=== PATIENT | male | born 1945 | race Caucasian/White ===

== ENCOUNTER 2022-03-07 07:21 | Emergency (ER) | payer MEDICARE, OTHER, SELFPAY ==
[2022-03-07] VITALS (8 sets, daily range): BP systolic 195–238; BP diastolic 97–102; PULSE 76–101; RESP 20; TEMP 36.3; O2SAT 96–98; BMI 25.0
--- NOTE | 2022-03-07 07:51 | ED.GENADULT ---
HPI - General Adult General Chief complaint: High Blood Pressure <Sabrina Leon MD - Last Filed: 03/07/22 07:58> Stated complaint: High Blood Pressure <Sabrina Leon MD - Last Filed: 03/07/22 07:58> Time Seen by Provider: 03/07/22 07:50 <Sabrina Leon MD - Last Filed: 03/07/22 07:58> Source: patient <Sabrina Leon MD - Last Filed: 03/07/22 07:58> Mode of arrival: ambulatory <Sabrina Leon MD - Last Filed: 03/07/22 07:58> Limitations: no limitations <Sabrina Leon MD - Last Filed: 03/07/22 07:58> History of Present Illness HPI narrative: Patient is a 77-year-old male coming in today concerned about high blood pressure. Patient has been trying to quit smoking and has been taking his niece's Wellbutrin for the last 6 days. He randomly decided to check his blood pressure yesterday and found that it was 150 systolic. This concerned him very much especially this morning when he rechecked it and it was 180 systolic. Patient tells me that he does have a history of high blood pressure but stopped taking his medication several years ago. Has not checked his blood pressures in many years so he does not know what an average for him is. He feels fine, denies chest pain, shortness of breath, headache, blurry vision, urinary symptoms or abdominal discomfort. Patient has a history of history of tobacco use and hyperlipidemia. He takes simvastatin daily. He is from [place] and does not have a primary care provider in [place] yet. <Sabrina Leon MD - Last Filed: 03/07/22 07:58> Related Data Home medications: Home Medications Medication Instructions Recorded Confirmed simvastatin 40 mg tablet 40 mg PO DAILY 03/07/22 03/07/22 Previous Rx's Medication Instructions Recorded metoprolol succinate 25 mg 25 mg PO DAILY #14 tabs 03/07/22 tablet,extended release 24 hr <Sabrina Leon MD - Last Filed: 03/07/22 07:58> Allergies/adverse reactions: Allergies Allergy/AdvReac Type Severity Reaction Status Date / Time No Known Drug Allergies Allergy Verified 03/07/22 07:37 <Sabrina Leon MD - Last Filed: 03/07/22 07:58> Review of Systems Status of ROS: Reports: 10 or more systems reviewed and unremarkable except as noted in History and below <Sabrina Leon MD - Last Filed: 03/07/22 07:58> [facility] Social History: Social History Smoking Status: Former smoker Do you use any of these nicotine containing products: None Second hand tobacco smoke exposure: No How often do you have a drink containing alcohol: never AUDIT-C Alcohol total score: 0 Non-prescribed substance use: denies use service: Yes <Sabrina Leon MD - Last Filed: 03/07/22 07:58> Exam Narrative: Exam Narrative: Well-nourished well-developed patient in no acute distress. Alert and oriented. Answers questions appropriately. Mood and affect are appropriate. Thoughts are goal oriented and rational. No tangential or magical thinking noted. Patient speaks in full sentences without needing to catch their breath. HEENT: Normocephalic atraumatic. Pupils are equally round reactive to light. Extraocular muscles are intact. Conjunctivae are moist without any icterus noted. Moist mucous membranes. Posterior pharynx is normal. Neck is soft without any lymphadenopathy or thyromegaly. No masses are appreciated. Cardiovascular: Heart is regular rate and rhythm S1 and S2 are present without any murmurs. Lungs: Clear to auscultation bilaterally no wheezes rhonchi or rales are appreciated. Patient takes deep breaths without any discomfort. Abdomen: Soft and nontender nondistended with normal bowel sounds. Extremities: Bilateral lower extremities are without edema. Skin: Well perfused without any obvious rashes. <Sabrina Leon MD - Last Filed: 03/07/22 07:58> Const: Vital Signs, click to edit/add: Vital Signs - 24 hr 03/07/22 07:31 03/07/22 07:42 03/07/22 07:43 Temperature 97.3 F L Pulse Rate 84 92 Pulse Rate [Pulse Oximeter] 87 Respiratory Rate 20 Blood Pressure 209/102 H Blood Pressure [Ri ght Upper Arm] 238/100 H Pulse Oximetry 97 96 97 Oxygen Delivery Me thod Room Air 03/07/22 07:44 03/07/22 08:00 03/07/22 08:02 Temperature Pulse Rate 101 H 80 76 Pulse Rate [Pulse Oximeter] Respiratory Rate Blood Pressure 195/97 H Blood Pressure [Ri ght Upper Arm] Pulse Oximetry 98 97 97 Oxygen Delivery Me thod 03/07/22 08:03 03/07/22 08:33 Temperature Pulse Rate 85 78 Pulse Rate [Pulse Oximeter] Respiratory Rate Blood Pressure 197/102 H Blood Pressure [Ri ght Upper Arm] Pulse Oximetry 98 97 Oxygen Delivery Me thod <Sabrina Leon MD - Last Filed: 03/07/22 07:58> Vital Signs, click to edit/add: Vital Signs - 24 hr 03/07/22 07:31 03/07/22 07:42 03/07/22 07:43 Temperature 97.3 F L Pulse Rate 84 92 Pulse Rate [Pulse Oximeter] 87 Respiratory Rate 20 Blood Pressure 209/102 H Blood Pressure [Ri ght Upper Arm] 238/100 H Pulse Oximetry 97 96 97 Oxygen Delivery Me thod Room Air 03/07/22 07:44 03/07/22 08:00 03/07/22 08:02 Temperature Pulse Rate 101 H 80 76 Pulse Rate [Pulse Oximeter] Respiratory Rate Blood Pressure 195/97 H Blood Pressure [Ri ght Upper Arm] Pulse Oximetry 98 97 97 Oxygen Delivery Me thod 03/07/22 08:03 03/07/22 08:33 Temperature Pulse Rate 85 78 Pulse Rate [Pulse Oximeter] Respiratory Rate Blood Pressure 197/102 H Blood Pressure [Ri ght Upper Arm] Pulse Oximetry 98 97 Oxygen Delivery Me thod <Hunter Coombs MD - Last Filed: 03/07/22 08:45> Course Course Hospital Course: Given that we not know how long his blood pressures have been elevated, CBC and chemistries were ordered. <Sabrina Leon MD - Last Filed: 03/07/22 07:58> Vital Signs Vital signs: Initial Vital Signs Temperature 97.3 F L 03/07/22 07:31 Temperature Source Temporal Artery Scan 03/07/22 07:31 Pulse Rate 87 03/07/22 07:31 Respiratory Rate 20 03/07/22 07:31 Blood Pressure 238/100 H 03/07/22 07:31 Blood Pressure Mean 146 03/07/22 07:31 Blood Pressure Position Sitting 03/07/22 07:31 Pulse Oximetry 97 03/07/22 07:31 Oxygen Delivery Method 03/07/22 07:31 Vital Signs Temperature 97.3 F L 03/07/22 07:31 Pulse Rate 87 03/07/22 07:31 Respiratory Rate 20 03/07/22 07:31 Blood Pressure 238/100 H 03/07/22 07:31 Pulse Oximetry 97 03/07/22 07:31 Oxygen Delivery Method 03/07/22 07:31 Temperature 97.3 F L 03/07/22 07:31 Pulse Rate 78 03/07/22 08:33 Respiratory Rate 20 03/07/22 07:31 Blood Pressure 197/102 H 03/07/22 08:33 Pulse Oximetry 97 03/07/22 08:33 Oxygen Delivery Method 03/07/22 07:31 <Sabrina Leon MD - Last Filed: 03/07/22 07:58> Initial Vital Signs Temperature 97.3 F L 03/07/22 07:31 Temperature Source Temporal Artery Scan 03/07/22 07:31 Pulse Rate 87 03/07/22 07:31 Respiratory Rate 20 03/07/22 07:31 Blood Pressure 238/100 H 03/07/22 07:31 Blood Pressure Mean 146 03/07/22 07:31 Blood Pressure Position Sitting 03/07/22 07:31 Pulse Oximetry 97 03/07/22 07:31 Oxygen Delivery Method 03/07/22 07:31 Vital Signs Temperature 97.3 F L 03/07/22 07:31 Pulse Rate 87 03/07/22 07:31 Respiratory Rate 20 03/07/22 07:31 Blood Pressure 238/100 H 03/07/22 07:31 Pulse Oximetry 97 03/07/22 07:31 Oxygen Delivery Method 03/07/22 07:31 Temperature 97.3 F L 03/07/22 07:31 Pulse Rate 78 03/07/22 08:33 Respiratory Rate 20 03/07/22 07:31 Blood Pressure 197/102 H 03/07/22 08:33 Pulse Oximetry 97 03/07/22 08:33 Oxygen Delivery Method 03/07/22 07:31 <Hunter Coombs MD - Last Filed: 03/07/22 08:45> Medical Decision Making MDM Narrative Medical decision making narrative: The patient's EKG looks reassuring with normal sinus rhythm some PACs, his laboratory studies look reassuring his glucose nonfasting is slightly elevated. He will try a metoprolol 25 mg extended release now and then continue that and check his blood pressure regularly. Recheck with his regular doctor for 5 days. Sooner problems; if blood pressure gets too low then he should stop the medication <Hunter Coombs MD - Last Filed: 03/07/22 08:45> Lab Data Labs: Lab Results 03/07/22 03/07/22 Range/Units 07:59 07:59 WBC 6.09 (4.50-11.00) K/uL RBC 5.09 (4.30-5.90) m/uL Hgb 15.7 (13.5-17.5) gm/dL Hct 46.3 (37.0-53.0) % MCV 91 (80-100) fL MCH 31 (26-34) pg MCHC 34 (32-36) gm/dL RDW Coeff of Sathish 12.5 (11.5-15.5) % Plt Count 173 (140-440) K/uL Neut % (Auto) 70.7 (42.0-72.0) % Lymph % (Auto) 17.4 L (20-44) % Stanton % (Auto) 10.3 (0.0-11.0) % Eos % (Auto) 1.3 (0.0-7.0) % Baso % (Auto) 0.3 (0.0-3.0) % Neut # (Auto) 4.30 (1.7-7.0) K/uL Lymph # (Auto) 1.10 (0.90-2.90) K/uL Stanton # (Auto) 0.60 (0.00-0.90) K/UL Eos # (Auto) 0.08 (0.00-0.50) K/uL Baso # (Auto) 0.02 (0.00-0.30) K/uL Sodium 135 (135-149) mmol/L Potassium 3.9 (3.6-5.1) mmol/L Chloride 102 (96-114) mmol/L Carbon Dioxide 26 (20-32) mmol/L BUN 12 (7-30) mg/dL Creatinine 0.7 (0.5-1.5) mg/dL Estimated Creat Clear 54.67 Estimated GFR 95 ml/min Glucose 153 H (60-115) mg/dL Calcium 8.9 (8.4-10.6) mg/dL <Sabrina Leon MD - Last Filed: 03/07/22 07:58> Lab Results 03/07/22 03/07/22 Range/Units 07:59 07:59 WBC 6.09 (4.50-11.00) K/uL RBC 5.09 (4.30-5.90) m/uL Hgb 15.7 (13.5-17.5) gm/dL Hct 46.3 (37.0-53.0) % MCV 91 (80-100) fL MCH 31 (26-34) pg MCHC 34 (32-36) gm/dL RDW Coeff of Sathish 12.5 (11.5-15.5) % Plt Count 173 (140-440) K/uL Neut % (Auto) 70.7 (42.0-72.0) % Lymph % (Auto) 17.4 L (20-44) % Stanton % (Auto) 10.3 (0.0-11.0) % Eos % (Auto) 1.3 (0.0-7.0) % Baso % (Auto) 0.3 (0.0-3.0) % Neut # (Auto) 4.30 (1.7-7.0) K/uL Lymph # (Auto) 1.10 (0.90-2.90) K/uL Stanton # (Auto) 0.60 (0.00-0.90) K/UL Eos # (Auto) 0.08 (0.00-0.50) K/uL Baso # (Auto) 0.02 (0.00-0.30) K/uL Sodium 135 (135-149) mmol/L Potassium 3.9 (3.6-5.1) mmol/L Chloride 102 (96-114) mmol/L Carbon Dioxide 26 (20-32) mmol/L BUN 12 (7-30) mg/dL Creatinine 0.7 (0.5-1.5) mg/dL Estimated Creat Clear 54.67 Estimated GFR 95 ml/min Glucose 153 H (60-115) mg/dL Calcium 8.9 (8.4-10.6) mg/dL <Hunter Coombs MD - Last Filed: 03/07/22 08:45> Discharge Plan Discharge Clinical Impression: Hypertension <Sabrina Leon MD - Last Filed: 03/07/22 07:58> Patient Disposition: Home, Self-Care <Sabrina Leon MD - Last Filed: 03/07/22 07:58> Condition: Improved <Sabrina Leon MD - Last Filed: 03/07/22 07:58> Additional Instructions: Low-salt diet, follow up with regular doctor in couple of days to recheck her blood pressure. Return to ED sooner problems or concerns. Because the patient's elevated blood pressure would start metoprolol 25 mg a day, would do this because he has had a diagnosis of hypertension in the past. He needs to monitor his blood pressure carefully perhaps daily until he sees his doctor in the next 4-5 days, and will call in some metoprolol 25 mg extended release daily until then. This could be adjusted as follow-up visit. <Sabrina Leon MD - Last Filed: 03/07/22 07:58> Activity Level: Light activity <Sabrina Leon MD - Last Filed: 03/07/22 07:58> Light activity <Hunter Coombs MD - Last Filed: 03/07/22 08:45> Discharge Diet: Heart Healthy (2 gm sodium, low fat) <Sabrina Leon MD - Last Filed: 03/07/22 07:58> Heart Healthy (2 gm sodium, low fat) <Hunter Coombs MD - Last Filed: 03/07/22 08:45> Prescriptions: New metoprolol succinate 25 mg tablet extended release 24 hr 25 mg PO DAILY Qty: 14 2RF No Action simvastatin 40 mg tablet 40 mg PO DAILY <Sabrina Leon MD - Last Filed: 03/07/22 07:58> Stand Alone Forms: [employer] Info Instructions <Sabrina Leon MD - Last Filed: 03/07/22 07:58>
[2022-03-07 08:06] LABS: Basophils Absolute Auto 0.02 K/uL (0.00-0.30); Basophils Percent Auto 0.3 % (0.0-3.0); Eosinophils Absolute Auto 0.08 K/uL (0.00-0.50); Eosinophils Percent Auto 1.3 % (0.0-7.0); Hematocrit 46.3 % (37.0-53.0); Hemoglobin* 15.7 gm/dL (13.5-17.5); Lymphocytes Percent Auto 17.4 % (20-44); Mean Corpuscular HGB Conc 34 gm/dL (32-36); Mean Corpuscular Hemoglobin 31 pg (26-34); Mean Corpuscular Volume 91 fL (80-100); Monocytes Percent Auto 10.3 % (0.0-11.0); Neutrophils Percent Auto 70.7 % (42.0-72.0); Platelet Count* 173 K/uL (140-440); RDW Coefficient of Variation % 12.5 % (11.5-15.5); Red Blood Count 5.09 m/uL (4.30-5.90); White Blood Count* 6.09 K/uL (4.50-11.00)
[2022-03-07 08:07] LABS: Slide Review Reflex No
[2022-03-07 08:18] LABS: Chloride* 102 mmol/L (96-114); Potassium* 3.9 mmol/L (3.6-5.1); Sodium* 135 mmol/L (135-149)
[2022-03-07 08:21] LABS: Carbon Dioxide* 26 mmol/L (20-32); Creatinine* 0.7 mg/dL (0.5-1.5); Est. Creatinine Clearance* 54.67; Estimated Glomerular Filt Rate 95 ml/min
[2022-03-07 08:22] LABS: Blood Urea Nitrogen* 12 mg/dL (7-30); Calcium* 8.9 mg/dL (8.4-10.6); Glucose* 153 mg/dL (60-115)
[2022-03-07] MEDS: METOPROLOL SUCCINATE (XL) 25 MG TAB PO (08:31)
== END 2022-03-07 08:52 | disposition home or self-care (01) ==
PROVIDERS: Emergency Provider Family Medicine
DX: I10 Essential (primary) hypertension (principal)
CPT/HCPCS: 36415; 80048; 85025; 99283; 99284; A9270

== ENCOUNTER 2024-07-07 10:31 | Emergency (ER) | payer MEDICARE, OTHER, SELFPAY ==
[2024-07-07] VITALS (9 sets, daily range): BP systolic 142–213; BP diastolic 104–120; PULSE 73–135; RESP 11–24; TEMP 36.8; O2SAT 93–97; BMI 3625.7
--- OUTSIDE RECORDS SUMMARY | 2024-07-07 10:34 | XMS_ITS | Clinical Summary ---
Author Organization [employer] [facility] Address [address] [place] [id number] Care Team Providers Care Needle Straightener Name Role Phone Elbert Snow MD Primary Care Provider + Allergies No known active allergies Medications Coenzyme Q10 10 mg cap Take 10 mg by mouth once daily. Active simvastatin (ZOCOR) 40 mg tabletIndication s:Dyslipidemia, goal LDL below 100 Take 1 Tablet (40 mg) by mouth at bedtime. 90 Tablet 3 04/17/2024 Active metoprolol succinate (TOPROL XL) 50 mg sustained-releas e tabletIndication s:HTN (hypertension) Take 1 Tablet (50 mg) by mouth once daily. 90 Tablet 3 04/17/2024 Active lisinopriL (PRINIVIL; ZESTRIL) 20 mg tabletIndication s:HTN (hypertension) Take 1 Tablet (20 mg) by mouth two times daily. 180 Tablet 3 04/17/2024 Active Active Problems Problem Noted Date Diagnosed Date HTN (hypertension) 07/06/2023 Encounters Date Type Department Care Team Description 05/03/2024 11:30 AM CDT Ancillary Procedure [facility] [address] [place] [address] 05/03/2024 Travel 04/17/2024 8:45 AM CDT Office Visit [facility] [address] [place] [address] Elbert Snow MD Medication Management 04/17/2024 Travel from Last 3 Months Immunizations Immunization Administration Dates Next Due Influenza, High-dose Quadrivalent Inactivated ,12/29/2021 Social History Tobacco Use Types Packs/Day Years Used Date Smoking Tobacco: Every Day Cigarettes 0.8 60 Smokeless Tobacco: Never Tobacco Cessation:Ready to Q uit: No; Counseling Given: Yes Comments:12- 14 cigs per day Alcohol Use Standard Drinks/Week Comments Not Currently 0 (1 standard drink = 0.6 oz pur e alcohol) PHQ-2 Answer Date Recorded PHQ-2 TOTAL SCORE 0 10/11/2023 Social Connections Answer Date Recorded Do you often feel lonely or isolated from those around you? 0 07/06/2023 Financial Resource Strain Answer Date R ecorded Difficulty of Paying Living Expenses 3 07/06/2023 Difficulty of Paying Living Expenses Not on file 07/06/2023 Food Insecurity Answer Date Recorded Do you worry your food will run out before you are able to buy more? 1 07/06/2023 Transportation Needs Answer Date Record ed Does lack of transportation keep you from medica l appointments? 1 07/06/2023 Does lack of transportation keep you from work, meetings or getting things that you need? 1 07/06/2023 Housing Stability Answer Date Recorded What is your housing situation today? 1 07/06/2023 Utilities Answer Date Recorded Do you have trouble paying f or utilities (for example, heat, electricity, water, phone)? 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 Gender Identity Not on file Sexual Orientation Not on file Obstetrics History Last Filed Vital Signs Vital Sign Reading Time Taken Comments Blood Pressure 125/77 04/17/2024 8:32 AM CDT Pulse 60 04/17/2024 8:32 AM CDT Temperature 36.9 C (98.5 F) 10/11/2023 1:32 PM CDT Respiratory Rate - - Oxygen Saturation 97% 04/17/2024 8:32 AM CDT Inhaled Oxygen Concentration - - Weight 71.2 kg (156 lb 14.4 oz) 04/17/2024 8:32 AM CDT Height 165.1 cm (5' 5) 04/17/2024 8:32 AM CDT Body Mass Index 26.11 04/17/2024 8:32 AM CDT Plan of Treatment Upcoming Encounters Date Type Department Care Team (Late st Contact Info) Description 10/18/2024 7:30 AM CDT Office Visit [facility] [address] [place] [address] Elbert Snow MD [address] [place] [address] Health Maintenance Due Date Last Done Comments Tdap 1956 Hepatitis C screening for age 18-79 02/12/1964 Pneumococcal series for age 50+ (1 of 2 - PCV) 1965 Tetanus booster 1966 Zoster (shingles) series for age 50+ (1 of 2) 02/12/1996 RSV vaccine for adults or (1 - 1-dose 75+ series) 2021 COVID-19 vaccine series ( - season) 2023 05/16/2021, 12/01/2020 Influenza Vaccine (Season Ended) 2024 Depression screening for age 12+ 10/10/2024 10/11/2023, 05/11/2022 Medicare Wellness for age 65+ 10/11/2024 10/11/2023 BMI (ht and wt on same day) for age 18+ 04/17/2025 04/17/2024, 10/11/2023, 07/06/2023, Additional history exists Low Dose CT (for lung CA) age 50-80 05/03/2025 05/03/2024 Hepatitis B series for 19+ Aged Out N o longer eligible based on patient's age to complete this topic Procedures Procedure Name Priority Date/Time Associated Diagnosis Comments CT CHEST SCREENING LOW DOSE WO CONTRAST Routine 05/03/2024 11:25 AM CDT Personal history of nicotine dependence LIPID PANEL W REFLEX MEASURED LDL Routine 04/17/2024 8:21 AM CDT Dyslipidemia, goal LDL below 100 from Last 3 Months Results * CT CHEST SCREENING LOW DOSE WO CONTRAST [[id number]] -- Criteria: must meet ALL: Age 50-80, current smoker or quit within the last 15 years, AND 20+ pack-year history (05/03/2024 11:25 AM CDT) Anatomical Region Laterality Modality Computed Tomogra phy Impressions 05/04/2024 9:18 AM CDT Small pulmonary nodules. Lung rads category 2, benign. Continue annual screening with low-dose chest CT in 12 months. Please note that all CT scans at this facility use dose modulation, iterative reconstruction and/or weight-based dosing when appropriate to reduce radiation dose to as low as reasonably achievable. Dictated by: Alonzo Ibanez MD @05/03/2024 8:07:02 PM/[facility] Neuroradiologist Narrative 05/04/2024 9:18 AM CDT For Patients: As a result of the Century Cures Act, medical imaging exams and procedure reports are released immediately into your electronic medical record. You may view this report before your referring provider. If you have questions, please contact your health care provider. CT CHEST SCREENING LOW-DOSE WITHOUT CONTRAST 05/03/2024 INDICATION: Lung cancer screening. TECHNIQUE: Low-dose lung cancer screening noncontrast CT chest. Dose reduction techniques were used. COMPARISON: None. FINDINGS: No focal consolidation, pleural effusion, or pneumothorax. Solid 2 mm endobronchial nodule RIGHT upper lobe may be secondary to mucous plugging (series 5, image 68). Few punctate solid nodules elsewhere in the lungs. Calcified granuloma LEFT lower lobe. Moderate upper lobe predominant centrilobular emphysema. Heart size is normal. No pericardial effusion. Coronary artery atherosclerotic calcifications. No mediastinal or hilar lymphadenopathy. Borderline aneurysmal dilatation of ascending thoracic aorta measuring 3.9 cm. Limited images through the upper abdomen are unremarkable. Multilevel thoracic spondylosis. No aggressive osseous lesions. us Elbert Snow MD CT Final Re sult * LIPID PANEL W REFLEX MEASURED LDL (04/17/2024 8:21 AM CDT) CHOLESTEROL, TOTAL 150 <200 mg/dL [facility] HDL CHOLESTEROL 61 > OR = 40 mg/dL [facility] TRIGLYCERIDES 66 <150 mg/dL [facility] LDL-CHOLESTEROL 74 mg/dL (calc) [facility] Comment: Reference range: <100 Desirable range <100 mg/dL for primary prevention; <70 mg/dL for patients with CHD or diabetic patients with > or = 2 CHD risk factors. LDL-C is now calculated using the Yfn calculation, which is a validated novel method providing better accuracy than the Friedewald equation in the estimation of LDL-C. Kirk QURESHI et al. FRANCO. 2013;310(19): 4152-9033 (http://education.SDNsquare/faq/DAH965) CHOL/HDLC RATIO 2.5 <5.0 (calc) [facility] NON HDL CHOLESTEROL 89 <130 mg/dL (calc) [facility] Comment: For patients with diabetes plus 1 major ASCVD risk factor, treating to a non-HDL-C goal of <100 mg/dL (LDL-C of <70 mg/dL) is considered a therapeutic option. Blood BLOOD SPECIMEN / Unknown 04/17/2024 8:21 AM CDT 04/17/2024 8:21 AM CDT Elbert Snow MD CHEMISTRY Final Re sult [facility] [address] [place] [address], [facility] [address] [place] [address] from Last 3 Months Insurance MEDICARE PB ONLY [employer] Care Teams Needle Straightener Relationship Specialty Start Date End Date Votel, Elbert Granados MD [address] [place] [address] PCP - General Family Practice 07/06/23
--- NOTE | 2024-07-07 10:47 | CRLHL7_ITS ---
For Patients: As a result of the Century Cures Act, medical imaging exams and procedure reports are released immediately into your electronic medical record. You may view this report before your referring provider. If you have questions, please contact your health care provider. INDICATION: Dyspnea. TECHNIQUE: Chest radiograph, 1 view. COMPARISON: None. FINDINGS: Cardiovascular/Mediastinum: Normal heart size. Unremarkable. Lungs: No focal consolidation. Airways: Trachea remains midline. Pleura: No pleural effusions or pneumothorax. Bones: No acute osseous abnormalities. Upper abdomen: Unremarkable. IMPRESSION: No acute cardiopulmonary process. Dictated by Saji Brown MD @ 07/07/2024 11:35:03 AM (Electronically Signed)
--- NOTE | 2024-07-07 10:49 | ED.GENADULT ---
HPI - General Adult General Chief complaint: Arrhythmia/Palpitations Stated complaint: afib Time Seen by Provider: 07/07/24 10:37 History of Present Illness HPI narrative: Patient is a 79 year white male who has a history of hypertension he is on lisinopril and metoprolol for blood pressure control. He woke up today notices pulse is elevated, and his blood pressure is elevated today on presentation here. He has scar over the Internet and thinks he is in AFib. He is very anxious, and has what he describes as ?white coat hypertension?. He does report missing any medications. Fortunately he is completely asymptomatic with no fever chills, chest pain, shortness of breath, neck or arm pain, diaphoresis. He has been in his usual state of health. He continues to smoke. He has not had any history of heart disease. His chart was reviewed. Related Data Home Medications ?Medication ?Instructions ?Recorded ?Confirmed simvastatin 40 mg tablet 40 mg PO DAILY 03/07/22 03/07/22 Previous Rx's ?Medication ?Instructions ?Recorded metoprolol succinate 25 mg 25 mg PO DAILY #14 tabs 03/07/22 tablet,extended release 24 hr Allergies Allergy/AdvReac Type Severity Reaction Status Date / Time No Known Drug Allergies Allergy Verified 07/07/24 10:37 Review of Systems Status of ROS: Reports: 6 or more systems reviewed and unremarkable except as noted in History and below PFSH PFS Social History Smoking Status: Former smoker Do you use any of these nicotine containing products: None Second hand tobacco smoke exposure: No How often do you have a drink containing alcohol: never AUDIT-C Alcohol total score: 0 Non-prescribed substance use: denies use service: Yes Exam Narrative: Exam Narrative: Objective: The patient has elevated blood pressure 213/120 temp is 98.3? pulse is 135 but appears to be on his EKG by my review is sinus rhythm. Alert or x3 Neck is supple Chest is clear Heart rhythm regular heart murmur Abdomen benign soft Extremities no dermis edema neurologic nonfocal upper extremities Const: Vital Signs, click to edit/add: Vital Signs - 24 hr 07/07/24 10:37 07/07/24 10:47 07/07/24 10:54 Temperature 98.3 F Pulse Rate 125 H Pulse Rate [Pulse Oximeter] 135 H Respiratory Rate 18 24 Blood Pressure 188/118 H Blood Pressure [Ri ght Upper Arm] 213/120 H Pulse Oximetry 93 95 97 Oxygen Delivery Me thod Room Air 07/07/24 11:13 07/07/24 11:22 07/07/24 11:23 Temperature Pulse Rate 87 80 76 Pulse Rate [Pulse Oximeter] Respiratory Rate 16 20 19 Blood Pressure 166/108 H 164/110 H Blood Pressure [Ri ght Upper Arm] Pulse Oximetry 96 96 96 Oxygen Delivery Me thod 07/07/24 11:30 07/07/24 11:43 07/07/24 11:45 Temperature Pulse Rate 74 80 73 Pulse Rate [Pulse Oximeter] Respiratory Rate 11 L 23 Blood Pressure 142/104 H Blood Pressure [Ri ght Upper Arm] Pulse Oximetry 95 94 94 Oxygen Delivery Me thod Course Vital Signs Vital signs: Initial Vital Signs Temperature 98.3 F 07/07/24 10:37 Temperature Source Temporal Artery Scan 07/07/24 10:37 Pulse Rate 135 H 07/07/24 10:37 Respiratory Rate 18 07/07/24 10:37 Blood Pressure 213/120 H 07/07/24 10:37 Blood Pressure Mean 151 H 07/07/24 10:37 Pulse Oximetry 93 07/07/24 10:37 Oxygen Delivery Method Room Air 07/07/24 10:37 Vital Signs Temperature 98.3 F 07/07/24 10:37 Pulse Rate 135 H 07/07/24 10:37 Respiratory Rate 18 07/07/24 10:37 Blood Pressure 213/120 H 07/07/24 10:37 Pulse Oximetry 93 07/07/24 10:37 Oxygen Delivery Method Room Air 07/07/24 10:37 Temperature 98.3 F 07/07/24 10:37 Pulse Rate 73 07/07/24 11:45 Respiratory Rate 23 07/07/24 11:45 Blood Pressure 142/104 H 07/07/24 11:43 Pulse Oximetry 94 07/07/24 11:45 Oxygen Delivery Method Room Air 07/07/24 10:37 Medications Administered Medications: Discontinued Medications Generic Name Dose Route Start Last Admin Trade Name Freq PRN Reason Stop Dose Admin Aspirin 324 mg 07/07/24 10:47 07/07/24 11:07 Aspirin 81 Mg Tab.Chew PO 07/07/24 10:48 Not Given ONCE ONE Sodium Chloride 500 mls @ 500 mls/hr 07/07/24 10:47 07/07/24 11:03 0.9 % Sodium Chloride 500 Ml IV 07/07/24 11:46 500 mls/hr .Q1H ONE Administration Lorazepam 1 mg 07/07/24 10:54 07/07/24 11:02 Lorazepam 1 Mg Tablet PO 07/07/24 10:55 1 mg ONCE ONE Administration Metoprolol Tartrate 5 mg 07/07/24 10:54 07/07/24 11:04 Metoprolol Tartrate 1 Mg/Ml Inj IVP 07/07/24 10:55 5 mg ONCE ONE Administration Medical Decision Making MDM Narrative Medical decision making narrative: [age] year white male with hypertension and tachycardia today. He felt palpitations. His heart rate is elevated but on EKG read by my review seems to be sinus tachycardia. He is very anxious. I think checking his troponin, giving him aspirin rule out acute coronary syndrome monitor him on the monitor will give him some Lopressor to lowers perhaps pulse and heart rate, would also like to give him a small dose Ativan for his anxiety given if he has a ride home. Disposition pending findings above, labs will be ordered as well as a chest x-ray. Addendum 11:53 a.m.: The patient's EKG now that he has been more in a slowed sinus tachycardia is sinus rhythm with sinus arrhythmia rate of 1 rate of about 80 ventricular beats per minute, there is no obvious ST segment or T-wave changes. His troponin is negative, his other labs are negative, his blood pressure now is 144/104. He got Ativan 1 mg orally and Lopressor 5 mg IV. At this point he would like to hold off on any other blood pressure control as he tends to get more elevated blood pressure we around ?white coat syndrome ?. He can continue his metoprolol daily and is a ALESSANDRO-inhibitor, would recommend adequate hydration good amount of fluid intake. Follow up with regular doctor next 2 3 days, return to ED sooner problems or concerns. Lab Data Labs: Lab Results 07/07/24 Range/Units 10:47 WBC 6.49 (4.50-11.00) K/uL RBC 5.48 (4.30-5.90) m/uL Hgb 16.9 (13.5-17.5) gm/dL Hct 51.3 (37.0-53.0) % MCV 94 (80-100) fL MCH 31 (26-34) pg MCHC 33 (32-36) gm/dL RDW Coeff of Sathish 12.6 (11.5-15.5) % Plt Count 209 (140-440) K/uL Neut % (Auto) 52.6 (42.0-72.0) % Lymph % (Auto) 30.2 (20-44) % Catron % (Auto) 14.8 H (0.0-11.0) % Eos % (Auto) 1.7 (0.0-7.0) % Baso % (Auto) 0.5 (0.0-3.0) % Neut # (Auto) 3.42 (1.7-7.0) K/uL Lymph # (Auto) 1.96 (0.90-2.90) K/uL Catron # (Auto) 1.00 H (0.00-0.90) K/UL Eos # (Auto) 0.11 (0.00-0.50) K/uL Baso # (Auto) 0.03 (0.00-0.30) K/uL Abs Immat Gran (auto) 0.01 (0.00-0.30) K/uL Imm/Tot Granulo (auto) 0.2 % Sodium 137 (135-149) mmol/L Potassium 3.8 (3.6-5.1) mmol/L Chloride 100 (96-114) mmol/L Carbon Dioxide 29 (20-32) mmol/L Anion Gap 8 (7-15) mEq/L BUN 15 (7-30) mg/dL Creatinine 0.9 (0.5-1.5) mg/dL Estimated Creat Clear 60.93 Estimated GFR 87 ml/min Glucose 111 (60-115) mg/dL Calcium 9.7 (8.4-10.6) mg/dL Total Bilirubin 0.8 (0.1-1.5) mg/dL Direct Bilirubin 0.3 (0.0-0.5) mg/dL AST 51 H (12-35) U/L ALT 42 (4-50) U/L Alkaline Phosphatase 66 (40-150) U/L C-Reactive Protein < 0.5 L (0.5-1.0) mg/dL NT-Pro-B Natriuret Pep 203 (See Note) pg/mL Total Protein 8.1 (6.0-8.3) g/dL Albumin 4.7 (3.3-5.0) g/dL POC Troponin I 0.01 (0.01-0.04) ng/ml Discharge Plan Discharge Clinical Impression: Hypertension, Tachycardia Patient Disposition: Home w/ Parent or Adult Condition: Improved Additional Instructions: Continue home meds, drink adequate amount of water every day, would recommend he recheck with regular doctor next 3-5 days. Activity Level: Light activity Discharge Diet: Regular Prescriptions: No Action simvastatin 40 mg tablet 40 mg PO DAILY metoprolol succinate 25 mg tablet extended release 24 hr 25 mg PO DAILY Qty: 14 2RF Follow Up/Referrals: Provider,Not a Local [Non-Staff, Family Practice] Stand Alone Forms: MyHealth Info Instructions
[2024-07-07 10:59] LABS: Basophils Absolute Auto 0.03 K/uL (0.00-0.30); Basophils Percent Auto 0.5 % (0.0-3.0); Eosinophils Absolute Auto 0.11 K/uL (0.00-0.50); Eosinophils Percent Auto 1.7 % (0.0-7.0); Hematocrit 51.3 % (37.0-53.0); Hemoglobin* 16.9 gm/dL (13.5-17.5); Immature Granulocytes Abs Auto 0.01 K/uL (0.00-0.30); Immature Granulocytes Pct Auto 0.2 %; Lymphocytes Absolute Auto 1.96 K/uL (0.90-2.90); Lymphocytes Percent Auto 30.2 % (20-44); Mean Corpuscular HGB Conc 33 gm/dL (32-36); Mean Corpuscular Hemoglobin 31 pg (26-34); Mean Corpuscular Volume 94 fL (80-100); Monocytes Percent Auto 14.8 % (0.0-11.0); Neutrophils Absolute Auto 3.42 K/uL (1.7-7.0); Neutrophils Percent Auto 52.6 % (42.0-72.0); Platelet Count* 209 K/uL (140-440); RDW Coefficient of Variation % 12.6 % (11.5-15.5); Red Blood Count 5.48 m/uL (4.30-5.90); White Blood Count* 6.49 K/uL (4.50-11.00)
[2024-07-07 11:02] LABS: Slide Review Reflex No
[2024-07-07] MEDS: LORazepam 1 MG TABLET PO (11:02)
[2024-07-07] MEDS: 0.9 % SODIUM CHLORIDE 500 ML 500 ML IV (11:03)
[2024-07-07] MEDS: METOPROLOL TARTRATE 1 MG/ML inj 5 MG IVP (11:04)
[2024-07-07 11:05] LABS: Troponin, Point-of-Care* 0.01 ng/ml (0.01-0.04)
[2024-07-07 11:18] LABS: Albumin* 4.7 g/dL (3.3-5.0); Chloride* 100 mmol/L (96-114)
[2024-07-07 11:19] LABS: Potassium* 3.8 mmol/L (3.6-5.1); Sodium* 137 mmol/L (135-149)
[2024-07-07 11:21] LABS: Blood Urea Nitrogen* 15 mg/dL (7-30); Creatinine* 0.9 mg/dL (0.5-1.5); Est. Creatinine Clearance* 60.93; Estimated Glomerular Filt Rate 87 ml/min
[2024-07-07 11:22] LABS: Alanine Aminotransferase* 42 U/L (4-50); Alkaline Phosphatase* 66 U/L (40-150); Anion Gap 8 mEq/L (7-15); Aspartate Amino Transferase* 51 U/L (12-35); Bilirubin Direct* 0.3 mg/dL (0.0-0.5); Bilirubin Total* 0.8 mg/dL (0.1-1.5); Calcium* 9.7 mg/dL (8.4-10.6); Carbon Dioxide* 29 mmol/L (20-32); Glucose* 111 mg/dL (60-115); Total Protein* 8.1 g/dL (6.0-8.3)
[2024-07-07 11:25] LABS: C Reactive Protein* < 0.5 mg/dL (0.5-1.0)
[2024-07-07 11:32] LABS: NT Pro B Type NatriureticPept* 203 pg/mL (See Note)
== END 2024-07-07 11:58 | disposition home or self-care (01) ==
PROVIDERS: Emergency Provider Family Medicine; PCP Family Medicine
DX: I10 Essential (primary) hypertension (principal); R00.0 Tachycardia, unspecified
CPT/HCPCS: 36415; 71045; 80048; 80076; 83880; 84484; 85025; 86140; 93005; 94761; 99285; A9270; J7030